=== PATIENT | male | born 1985 | race Caucasian/White ===

== ENCOUNTER → 2019-06-18 | Outpatient (CLI) | payer BC | LOC: COL.RAD 06-12 07:30 | DX: K71.50 Toxic liver disease with chronic active hepatitis without ascites (principal); R79.89 Other specified abnormal findings of blood chemistry ==

== ENCOUNTER 2019-10-26 20:18 | Emergency (ER) | payer BC ==
[~2019-10-26] VITALS: Ht 177.8 cm; Wt 81.8 kg
[~2019-10-26 20:18] MED LIST: FOLIC ACID 11 MG/TA1 PO; PRILOSEC 20MG20 MG PO; PRINIVIL5 MG PO; PROAIR HFA0.09 MG/AC IH; THIAMINE 1100 MG/TAB PO
[2019-10-26 20:34] VITALS: BP 127/89; TEMP 98
[2019-10-26 21:31] LABS: COLLECTION METHOD CLEAN CATCH
[2019-10-26 21:31] LABS: BASO # 0.1 (0.0-0.2); EOS # 0.3 (0.0-0.7); EOS % 4.1 % (0-4.0); GRAN # 3.1 (1.4-6.5); HEMATOCRIT 41.7 % (42.0-52.0); HEMOGLOBIN 14.8 g/dl (13.5-18.0); LYMPH # 2.5 (1.2-3.4); LYMPH % 36.5 % (20.0-51.0); MEAN CELL VOLUME 93 fl (80.0-100.0); MEAN CORPUSCULAR HEMOGLOBIN 33 pg (27.0-31.0); MEAN CORPUSCULAR HGB CONC 36 g/dl (33.0-37.0); MEAN PLATELET VOLUME 9.3 fl (7.4-10.4); MONO # 0.8 (0.1-0.6); PLATELET COUNT 229 K/mm3 (130-400); REDCELL DISTRIBUTION WIDTH-CV 11.8 % (11.5-14.5)
[2019-10-26 21:35] LABS: MUCOUS Present /lpf; PH 7 (5-8); SQUAMOUS EPITHELIAL None Seen /hpf; URINE APPEARANCE Clear; URINE BACTERIA None Seen /hpf; URINE BILIRUBIN Negative (NEGATIVE); URINE BLOOD Negative (NEGATIVE); URINE COLOR Colorless; URINE GLUCOSE Negative (NEGATIVE); URINE KETONE Negative (NEGATIVE); URINE LEUKOCYTE ESTERASE Negative (NEGATIVE); URINE NITRATE Negative (NEGATIVE); URINE PROTEIN(semi-quant) Negative (NEGATIVE); URINE RBC None Seen /hpf; URINE UROBILINOGEN Negative (NEGATIVE)
[2019-10-26 21:40] LABS: ALANINE AMINOTRANSFERASE 157 U/L (4-49); ALBUMIN 5.6 gm/dL (3.5-5.0); ALCOHOL(ethanol),MEDICAL 295 mg/dL; ALKALINE PHOSPHATASE 89 U/L (50-136); ANION GAP 17 mmol/L (7-16); AST,SGOT 112 U/L (15-37); BILIRUBIN,TOTAL 0.5 mg/dL (0.0-1.0); BLOOD UREA NITROGEN 5 mg/dL (9-20); CALCIUM 10.5 mg/dL (8.4-10.2); CARBON DIOXIDE 23 mmol/L (22-30); CHLORIDE 94 mmol/L (98-107); CREATININE, serum 0.83 (0.66-1.25); GLUCOSE 99 mg/dL (74-106); POTASSIUM 4.3 mmol/L (3.4-5.0); SODIUM 134 mmol/L (137-145); TOTAL PROTEIN 9.5 gm/dL (6.4-8.2)
[2019-10-26 21:41] LABS: ACETAMINOPHEN < 10 ug/mL (10-30); SALICYLATE < 1.0 mg/dL
[2019-10-26 21:43] LABS: TRICYCLIC ANTIDEPRESS URINE NEGATIVE
[2019-10-27 13:36] VITALS: PULSE 73
== END 2019-10-27 13:30 | disposition home or self-care (01) ==
LOC: COL.ER 20:18
PROVIDERS: Physician Assistant
DX: F29 Unspecified psychosis not due to a substance or known physiological condition (principal); F10.221 Alcohol dependence with intoxication delirium; F10.239 Alcohol dependence with withdrawal, unspecified; J45.909 Unspecified asthma, uncomplicated; K21.9 Gastro-esophageal reflux disease without esophagitis; Y90.8 Blood alcohol level of 240 mg/100 ml or more; Z88.6 Allergy status to analgesic agent
CPT/HCPCS: J2405; J7030

== ENCOUNTER 2023-10-10 14:05 | Emergency (ER) | payer BC ==
[~2023-10-10] VITALS: Ht 177.8 cm; Wt 70.0 kg
[~2023-10-10 14:05] MED LIST changes: +BENADRYL25 M2 PO; +DUO-KAPS1 CAP PO
[2023-10-10 14:15] VITALS: TEMP 98.2
[2023-10-10] MEDS ORDERED: LR 1,000 ML IV ONE (14:45)
[2023-10-10] MEDS ORDERED: Folic Acid 5 MG/ML 10 ML Multi-Dose VIAL IV ONE (14:45)
[2023-10-10] MEDS ORDERED: Magnesium Sulfate 4% 50 ML IV ONE (14:45)
--- NOTE | 2023-10-10 14:53 | NUR ---
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 SW met with pt and provided [facility] Resource Guide and local [facility] resources. SW suggested starting with [facility] to be assessed for which level of care best suits him. 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 He confirmed to have [employer]. He feels ashamed and embarrased for his substance use behavior. Pt states he can stay with his sister in the meantime, in [place] who is an ER physician. SW encouraged him to do this and to call [facility] to get further assistance. SW updated care team of pt's decision.
[2023-10-10 15:00] LABS: BASO # 0.1 K/mm3 (0.0-0.2); BASO % 2.2 % (0.0-2.0); EOS # 0.3 K/mm3 (0.0-0.7); EOS % 7.1 % (0.0-4.0); GRAN # 2.5 K/mm3 (1.4-6.5); GRAN % 55.9 % (42.2-75.2); HEMATOCRIT 38.5 % (42.0-52.0); HEMOGLOBIN 13.6 g/dl (13.5-18.0); LYMPH # 1.1 K/mm3 (1.2-3.4); LYMPH % 24.4 % (20.0-51.0); MEAN CELL VOLUME 93 fl (80.0-100.0); MEAN CORPUSCULAR HEMOGLOBIN 33 pg (27-31); MEAN CORPUSCULAR HGB CONC 35 g/dl (33.0-37.0); MEAN PLATELET VOLUME 8.7 fl (7.4-10.4); MONO # 0.5 K/mm3 (0.1-0.6); MONO % 10.2 % (1.7-9.3); PLATELET COUNT 249 K/mm3 (130-400); RED BLOOD COUNT 4.16 M/mm3 (4.20-5.60); REDCELL DISTRIBUTION WIDTH-CV 12.3 % (11.5-14.5)
[2023-10-10 15:24] LABS: ALBUMIN 4.7 g/dL (3.5-5.0); BILIRUBIN,TOTAL 0.6 mg/dL (0.2-1.2); CALCIUM 10.4 mg/dL (8.4-10.2); CREATININE, serum 0.76 mg/dL (0.72-1.25); MAGNESIUM 1.9 mg/dL (1.6-2.6); POTASSIUM 4.1 mEq/L (3.5-4.5); TOTAL PROTEIN 7.9 g/dl (6.2-8.1)
[2023-10-10] MEDS ORDERED: ZOFRAN ODT4 MG PO (17:34)
[2023-10-10 17:42] VITALS: BP 112/72; PULSE 90
== END 2023-10-10 17:43 | disposition home or self-care (01) ==
LOC: COL.ER 14:05
PROVIDERS: Emergency Medicine
DX: F10.239 Alcohol dependence with withdrawal, unspecified (principal); Y90.8 Blood alcohol level of 240 mg/100 ml or more
CPT/HCPCS: J3475; J7120

== ENCOUNTER 2024-02-18 19:57 | Emergency (ER) | payer BC ==
[~2024-02-18] VITALS: Ht 177.8 cm; Wt 70.5 kg
[~2024-02-18 19:57] MED LIST changes: +ZOFRAN ODT4 MG PO
[2024-02-18 20:01] VITALS: TEMP 97.4
[2024-02-18] MEDS ORDERED: Thiamine 100 MG TAB PO ONE (20:30)
[2024-02-18] MEDS ORDERED: LR 1,000 ML IV ONE (20:30)
[2024-02-18] MEDS ORDERED: Folic Acid 1 MG TAB PO ONE (20:30)
[2024-02-18 20:40] LABS: EOS # 0.2 K/mm3 (0.0-0.7); GRAN # 1.6 K/mm3 (1.4-6.5); GRAN % 40.7 % (42.2-75.2); HEMATOCRIT 38.6 % (42.0-52.0); HEMOGLOBIN 13.9 g/dl (13.5-18.0); LYMPH # 1.8 K/mm3 (1.2-3.4); LYMPH % 43.4 % (20.0-51.0); MEAN CELL VOLUME 89 fl (80.0-100.0); MEAN CORPUSCULAR HEMOGLOBIN 32 pg (27-31); MEAN CORPUSCULAR HGB CONC 36 g/dl (33.0-37.0); MEAN PLATELET VOLUME 9.4 fl (7.4-10.4); MONO # 0.4 K/mm3 (0.1-0.6); MONO % 8.9 % (1.7-9.3); PLATELET COUNT 190 K/mm3 (130-400); RED BLOOD COUNT 4.32 M/mm3 (4.20-5.60); REDCELL DISTRIBUTION WIDTH-CV 12.1 % (11.5-14.5)
[2024-02-18 20:45] LABS: INR 1.1 (0.8-3.0); PROTHROMBIN TIME 11.5 SECONDS (9.7-12.8)
[2024-02-18 21:00] LABS: ALBUMIN 4.4 g/dL (3.5-5.0); BILIRUBIN,TOTAL 0.4 mg/dL (0.2-1.2); CALCIUM 9.3 mg/dL (8.4-10.2); CREATININE, serum 0.81 mg/dL (0.72-1.25); MAGNESIUM 1.8 mg/dL (1.6-2.6); TOTAL PROTEIN 7.3 g/dl (6.2-8.1)
[2024-02-18 21:43] VITALS: BP 118/87; PULSE 78
== END 2024-02-18 21:45 | disposition home or self-care (01) ==
LOC: COL.ER 19:57
PROVIDERS: Emergency Medicine
DX: R06.02 Shortness of breath (principal)
CPT/HCPCS: J7120